=== PATIENT | male | born 1950 | race Caucasian/White ===

== ENCOUNTER 2016-07-13 17:46 | Inpatient (IN) | payer MEDICARE, BC ==
[~2016-07-13] VITALS: Ht 180.3 cm; Wt 73.7 kg
[2016-07-13 17:48] VITALS: BP 174/86; PULSE 73; RESP 18; TEMP 98; O2SAT 96
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
[2016-07-13] MEDS ORDERED: ATOR40TA16 PO (19:23)
[2016-07-13] MEDS ORDERED: SAW160TA (19:23)
[2016-07-13] MEDS ORDERED: DIVA500T PO (19:23)
[2016-07-13] MEDS ORDERED: METO100T PO (19:23)
[2016-07-13] MEDS ORDERED: MILK175C7 (19:23)
--- NOTE | 2016-07-13 19:24 | RADRPT ---
EXAM DATE/TIME: 07/13/2016 17:55 [facility] COMPARISON: No previous studies available for comparison. INDICATIONS : Pain from fall. MEDICAL HISTORY : None. SURGICAL HISTORY : None. ENCOUNTER: Initial ACUITY: 1 day PAIN SCORE: 5/10 LOCATION: Left ankle. FINDINGS: Three view exam was performed of the left ankle. The bony structures are in normal alignment. No ev idence of fracture, dislocation, or soft tissue swelling. The ankle mortise is intact. No radiopaqu e foreign bodies are seen. Bony mineralization is normal. CONCLUSION: Negative trauma study. Todd Cormier MD on July 13, 2016 at 19:21 Board Certified Radiologist. This report was verified electronically.
[2016-07-13 19:38] LABS: AUTOMATED NEUTROPHIL # 2.4 TH/MM3 (1.8-7.7); BASOPHIL % 0.6 % (0.0-2.0); EOSINOPHIL # 0.1 TH/MM3 (0-0.4); EOSINOPHIL % 2.1 % (0.0-4.0); HEMATOCRIT 40.4 % (39.0-51.0); HEMO FLAGS DIFF FINAL; LYMPH % 35.2 % (9.0-44.0); LYMPHOCYTE # 1.7 TH/MM3 (1.0-4.8); MEAN CELL VOLUME 90.1 FL (80.0-100.0); MEAN CORPUSCULAR HEMOGLOBIN 30.8 PG (27.0-34.0); MEAN CORPUSCULAR HGB CONC 34.2 % (32.0-36.0); MONO % 11.1 % (0.0-8.0); PLATELET COUNT 166 TH/MM3 (150-450); RED BLOOD COUNT 4.48 MIL/MM3 (4.50-5.90); RED CELL DISTRIBUTION WIDTH 13.5 % (11.6-17.2); WHITE BLOOD COUNT 4.7 TH/MM3 (4.0-11.0)
[2016-07-13 20:03] LABS: BICARBONATE 28.9 MEQ/L (21.0-32.0)
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
[2016-07-13] MEDS ORDERED: IOHEXOL 350 MG/ML 10 ML VIAL (for RAD DIAG) IV ONE (20:31)
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
[2016-07-13] MEDS ORDERED: SODIUM CHLOR 0.9% 1000 ML INJ 1,000 ML IV SCH (21:45)
[2016-07-13] MEDS ORDERED: HYDROmorphone HCL PF 1 MG/ML VIAL IV PRN (21:45)
[2016-07-13] MEDS ORDERED: SODIUM CHLORIDE 0.9% FLUSH 5 ML FLUSH IV FLUSH PRN (21:45)
[2016-07-13] MEDS ORDERED: MISCELLANEOUS NURSING INFORMATION XX SCH (21:45)
[2016-07-13] MEDS ORDERED: CHLORHEXIDINE GLUCONATE 2 % 1 PACK (2 CLOTHS) TOP PRN (21:45)
[2016-07-13] MEDS ORDERED: SODIUM CHLORIDE 0.9% FLUSH 5 ML FLUSH IV FLUSH SCH (21:45)
[2016-07-13] MEDS ORDERED: oxyCODONE/ACETAMINOPHEN 5 MG/325 MG TAB PO PRN (21:45)
[2016-07-13] MEDS ORDERED: ONDANSETRON HCL 4 MG/2 ML VIAL IV PRN (21:45)
[2016-07-13 21:47] VITALS: BP 151/68; PULSE 73; RESP 18; O2SAT 96
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
[2016-07-13] MEDS: levETIRAcetam 500 MG TAB PO SCH (22:12)
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
[2016-07-13 23:42] VITALS: BP 144/66; PULSE 85; RESP 18; O2SAT 94
[2016-07-14] VITALS (16 sets, daily range): BP systolic 141–169; BP diastolic 67–80; PULSE 74–98; RESP 17–26; TEMP 98.7–99.3; O2SAT 95–99
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
[2016-07-14] MEDS: CHLORHEXIDINE GLUCONATE 2 % 1 PACK (2 CLOTHS) TOP SCH (04:00)
[2016-07-14 04:05] LABS: AUTOMATED NEUTROPHIL # 4.5 TH/MM3 (1.8-7.7); BASOPHIL % 0.5 % (0.0-2.0); EOSINOPHIL % 0.4 % (0.0-4.0); HEMATOCRIT 39.7 % (39.0-51.0); HEMO FLAGS DIFF FINAL; LYMPH % 16.7 % (9.0-44.0); MEAN CELL VOLUME 91.9 FL (80.0-100.0); MEAN CORPUSCULAR HEMOGLOBIN 30.5 PG (27.0-34.0); MEAN CORPUSCULAR HGB CONC 33.2 % (32.0-36.0); MONO % 10.4 % (0.0-8.0); PLATELET COUNT 146 TH/MM3 (150-450); RED BLOOD COUNT 4.33 MIL/MM3 (4.50-5.90); RED CELL DISTRIBUTION WIDTH 13.3 % (11.6-17.2); WHITE BLOOD COUNT 6.2 TH/MM3 (4.0-11.0)
[2016-07-14 04:27] LABS: BICARBONATE 24.5 MEQ/L (21.0-32.0); POTASSIUM 3.5 MEQ/L (3.5-5.1)
[2016-07-14] MEDS ORDERED: EPINEPHrine HCL (1:10,000) 1 MG/10 ML SYRINGE ONE (05:29)
[2016-07-14] MEDS ORDERED: LIDOCAINE HCL 2% 100 MG/5 ML SYRINGE ONE (05:29)
[2016-07-14] MEDS ORDERED: ATROPINE SULFATE 1 MG/10 ML SYRINGE ONE (05:29)
--- NOTE | 2016-07-14 06:27 | RADRPT ---
EXAM DATE/TIME: 07/14/2016 05:45 [facility] COMPARISON: No previous studies available for comparison. INDICATIONS : Follow up trauma. RADIATION DOSE: 41.64 CTDIvol (mGy) MEDICAL HISTORY : Hypertension. SURGICAL HISTORY : Craniotomy ENCOUNTER: Subsequent ACUITY: 1 day PAIN SCALE: Non-responsive LOCATION: cranial TECHNIQUE: Multiple contiguous axial images were obtained of the head. Using automated exposure control and adj ustment of the mA and/or kV according to patient size, radiation dose was kept as low as reasonably a chievable to obtain optimal diagnostic quality images. FINDINGS: Compare July 13. There is a new 4.4 x 2.4 cm hemorrhage in the left frontal lobe. There is also slig ht increase in subarachnoid hemorrhage over the left convexity since prior examination. There is katrin te left craniotomy and some encephalomalacia on the left. Right hemisphere intact. No new bony abnorm alities. CONCLUSION: 1. There is a new focal 4.4 x 2.4 cm hematoma in the left frontal lobe and slight increase in subarac hnoid hemorrhage of the left convexity since July 13. Previous left craniotomy. Michele Manning MD on July 14, 2016 at 6:20 Board Certified Radiologist. This report was verified electronically.
[2016-07-14] MEDS ORDERED: SODIUM CHLOR 0.9% 1000 ML INJ 1,000 ML IV SCH (06:28)
[2016-07-14] MEDS ORDERED: RESP: ALBUTEROL 2.5 MG/IPRATROPIUM 0.5 MG NEB (PRN) INH (06:30)
[2016-07-14] MEDS ORDERED: ONDANSETRON HCL 4 MG/2 ML VIAL IV PRN (06:30)
[2016-07-14] MEDS ORDERED: SODIUM CHLORIDE 0.9% FLUSH 5 ML FLUSH IV FLUSH PRN (06:30)
[2016-07-14] MEDS ORDERED: ACETAMINOPHEN 325 MG TAB PO PRN (06:30)
[2016-07-14 07:50] LABS: APTT (PATIENT) 27.8 SEC (24.3-30.1); PROTHROMBIN TIME - PATIENT 11.2 SEC (9.8-11.6)
[2016-07-14] MEDS: FAMOTIDINE 20 MG TAB PO SCH ×2 (09:01→20:21)
[2016-07-14] MEDS: LACTULOSE SYRUP 20 GM/30 ML CUP PO SCH (09:02)
[2016-07-14] MEDS: levETIRAcetam 500 MG TAB PO SCH ×2 (09:02→20:22)
[2016-07-14] MEDS: DOCUSATE SODIUM 100 MG CAP PO SCH ×2 (09:02→20:21)
[2016-07-14] MEDS: SODIUM CHLORIDE 0.9% FLUSH 5 ML FLUSH IV FLUSH SCH ×2 (09:02→20:21)
[2016-07-14] MEDS: RESP: ALBUTEROL 2.5 MG/IPRATROPIUM 0.5 MG NEB (SCH) INH ×3 (10:26→22:21)
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
[2016-07-14] MEDS: MAGNESIUM HYDROXIDE SUSP 30 ML CUP PO SCH (20:21)
[2016-07-15] VITALS (11 sets, daily range): BP systolic 138–162; BP diastolic 57–73; PULSE 70–97; RESP 18–25; TEMP 98.7–100.8; O2SAT 96–100
[2016-07-15] MEDS: RESP: ALBUTEROL 2.5 MG/IPRATROPIUM 0.5 MG NEB (SCH) INH ×4 (03:08→21:03)
[2016-07-15 04:23] LABS: AUTOMATED NEUTROPHIL # 5.3 TH/MM3 (1.8-7.7); BASOPHIL # 0.1 TH/MM3 (0-0.2); BASOPHIL % 0.7 % (0.0-2.0); HEMATOCRIT 39.6 % (39.0-51.0); HEMO FLAGS DIFF FINAL; LYMPH % 12.6 % (9.0-44.0); LYMPHOCYTE # 0.9 TH/MM3 (1.0-4.8); MEAN CELL VOLUME 89.9 FL (80.0-100.0); MEAN CORPUSCULAR HEMOGLOBIN 30.6 PG (27.0-34.0); MONO % 13.2 % (0.0-8.0); NEUT % 73.5 % (16.0-70.0); PLATELET COUNT 145 TH/MM3 (150-450); RED CELL DISTRIBUTION WIDTH 13.5 % (11.6-17.2); WHITE BLOOD COUNT 7.3 TH/MM3 (4.0-11.0)
[2016-07-15] MEDS: CHLORHEXIDINE GLUCONATE 2 % 1 PACK (2 CLOTHS) TOP SCH (04:33)
[2016-07-15 05:23] LABS: ANION GAP 11 MEQ/L (5-15); AST (GOT) 18 U/L (15-37); BICARBONATE 27.6 MEQ/L (21.0-32.0); BLOOD UREA NITROGEN 10 MG/DL (7-18); CHLORIDE 102 MEQ/L (98-107); GLOMERULAR FILTRATION RATE 114 ML/MIN (>89); MAGNESIUM 2.2 MG/DL (1.5-2.5); POTASSIUM 3.3 MEQ/L (3.5-5.1); SODIUM (NA) 141 MEQ/L (136-145)
[2016-07-15] MEDS ORDERED: ATROPINE SULFATE 1 MG/10 ML SYRINGE ONE (05:36)
[2016-07-15] MEDS ORDERED: EPINEPHrine HCL (1:10,000) 1 MG/10 ML SYRINGE ONE (05:36)
[2016-07-15 05:38] LABS: ALKALINE PHOSPHATASE 39 U/L (45-117); ALT (GPT) 23 U/L (12-78); TOTAL BILIRUBIN ADULT 0.6 MG/DL (0.2-1.0)
--- NOTE | 2016-07-15 05:58 | RADRPT ---
EXAM DATE/TIME: 07/15/2016 05:38 [facility] COMPARISON: No previous studies available for comparison. INDICATIONS : Follow up bleed. RADIATION DOSE: 56.35 CTDIvol (mGy) MEDICAL HISTORY : Hypertension. SURGICAL HISTORY : Craniotomy. ENCOUNTER: Subsequent ACUITY: 2 days PAIN SCALE: 0/10 LOCATION: cranial TECHNIQUE: Multiple contiguous axial images were obtained of the head. Using automated exposure control and adj ustment of the mA and/or kV according to patient size, radiation dose was kept as low as reasonably a chievable to obtain optimal diagnostic quality images. FINDINGS: Compare July 14. There is a stable approximately 4 cm hematoma in the left frontal lobe. Stable suba rachnoid hemorrhage over the left convexity. Previous left craniotomy with encephalomalacia on the le ft. No new hemorrhage. Stable ventricular size. Small intraventricular hemorrhage on the left. CONCLUSION: 1. Stable exam since July 14. Approximate 4 cm hematoma remains in the left frontal lobe with left s ided subarachnoid hemorrhage and trace intraventricular hemorrhage. Michele Manning MD on July 15, 2016 at 5:55 Board Certified Radiologist. This report was verified electronically.
--- NOTE | 2016-07-15 06:10 | RADRPT ---
EXAM DATE/TIME: 07/15/2016 04:18 [facility] COMPARISON: No previous studies available for comparison. INDICATIONS : Shortness of breath. MEDICAL HISTORY : Hypertension. SURGICAL HISTORY : Cardiac stents. ENCOUNTER: Initial ACUITY: 1 day PAIN SCORE: Non-responsive. LOCATION: Bilateral chest FINDINGS: A single view of the chest demonstrates mild basilar density most characteristic of atelectasis. Hear t size within normal limits. Mildly tortuous aorta. No pneumothorax. CONCLUSION: 1. Minimal basilar atelectasis. Michele Manning MD on July 15, 2016 at 6:07 Board Certified Radiologist. This report was verified electronically.
[2016-07-15] MEDS: FAMOTIDINE 20 MG TAB PO SCH ×2 (08:44→20:36)
[2016-07-15] MEDS: DOCUSATE SODIUM 100 MG CAP PO SCH ×2 (08:44→20:36)
[2016-07-15] MEDS: SODIUM CHLORIDE 0.9% FLUSH 5 ML FLUSH IV FLUSH SCH ×2 (08:44→20:37)
[2016-07-15] MEDS: levETIRAcetam 500 MG TAB PO SCH ×2 (08:44→20:36)
[2016-07-15] MEDS: LACTULOSE SYRUP 20 GM/30 ML CUP PO SCH (09:00)
[2016-07-15] MEDS ORDERED: POTASSIUM PHOSPHATE MONOBASIC 500 MG TAB PO/TUBE PRN (12:30)
[2016-07-15] MEDS ORDERED: POTASSIUM CHLOR 20 MEQ PREMIX 100 ML IV PRN ×2 (12:30)
[2016-07-15] MEDS ORDERED: POTASSIUM PHOSPHATE INJ 30 MMOL in SODIUM CHLOR 0.9% 250 ML INJ 250 ML IV PRN (12:30)
[2016-07-15] MEDS ORDERED: POTASSIUM PHOSPHATE MONOBASIC 500 MG TAB PO PRN (12:30)
[2016-07-15] MEDS ORDERED: POTASSIUM CHLOR 40 MEQ PREMIX 100 ML IV PRN ×2 (12:30)
[2016-07-15] MEDS ORDERED: MAGNESIUM SULFATE INJ 2 GM in SODIUM CHLORIDE 0.9% INJ 96 ML IV PRN (12:30)
[2016-07-15] MEDS ORDERED: MAGNESIUM OXIDE 400 MG TAB PO PRN (12:30)
[2016-07-15] MEDS ORDERED: MAGNESIUM SULFATE INJ 4 GM in SODIUM CHLORIDE 0.9% INJ 92 ML IV PRN (12:30)
[2016-07-15] MEDS ORDERED: SODIUM PHOSPHATE INJ 30 MMOL in SODIUM CHLOR 0.9% 250 ML INJ 240 ML IV PRN (12:30)
[2016-07-15] MEDS ORDERED: hydrALAZINE HCL 20 MG/ML VIAL IV PUSH PRN (13:00)
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
[2016-07-15] MEDS: DIVALPROEX DR 500 MG TABEC PO SCH ×3 (14:57→20:36)
[2016-07-15] MEDS: ATORVASTATIN 40 MG TAB PO SCH (20:36)
[2016-07-15] MEDS: MAGNESIUM HYDROXIDE SUSP 30 ML CUP PO SCH (20:36)
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
[2016-07-16] VITALS (12 sets, daily range): BP systolic 123–142; BP diastolic 62–76; PULSE 73–101; RESP 13–20; TEMP 97.8–100.4; O2SAT 95–100
[2016-07-16] MEDS: CHLORHEXIDINE GLUCONATE 2 % 1 PACK (2 CLOTHS) TOP SCH (03:39)
[2016-07-16] MEDS: RESP: ALBUTEROL 2.5 MG/IPRATROPIUM 0.5 MG NEB (SCH) INH ×4 (03:54→20:08)
[2016-07-16 04:00] LABS: AUTOMATED NEUTROPHIL # 6.3 TH/MM3 (1.8-7.7); BASOPHIL % 0.4 % (0.0-2.0); EOSINOPHIL % 0.1 % (0.0-4.0); HEMATOCRIT 41.2 % (39.0-51.0); HEMO FLAGS DIFF FINAL; LYMPH % 11.6 % (9.0-44.0); MEAN CORPUSCULAR HEMOGLOBIN 30.7 PG (27.0-34.0); MEAN CORPUSCULAR HGB CONC 33.8 % (32.0-36.0); MONO % 12.9 % (0.0-8.0); PLATELET COUNT 153 TH/MM3 (150-450); RED BLOOD COUNT 4.53 MIL/MM3 (4.50-5.90); RED CELL DISTRIBUTION WIDTH 13.7 % (11.6-17.2); WHITE BLOOD COUNT 8.4 TH/MM3 (4.0-11.0)
[2016-07-16 04:31] LABS: ANION GAP 10 MEQ/L (5-15); AST (GOT) 22 U/L (15-37); BLOOD UREA NITROGEN 14 MG/DL (7-18); CHLORIDE 103 MEQ/L (98-107); GLOMERULAR FILTRATION RATE 98 ML/MIN (>89); MAGNESIUM 2.3 MG/DL (1.5-2.5); POTASSIUM 3.7 MEQ/L (3.5-5.1); SODIUM (NA) 140 MEQ/L (136-145)
[2016-07-16 04:35] LABS: ALKALINE PHOSPHATASE 42 U/L (45-117); ALT (GPT) 29 U/L (12-78); TOTAL BILIRUBIN ADULT 0.7 MG/DL (0.2-1.0)
[2016-07-16 06:02] LABS: C. DIFF EPI 027 PRESUMPTIVE NEGATIVE (NEGATIVE); C. DIFF TOXIN PCR NEGATIVE (NEGATIVE)
[2016-07-16] MEDS: levETIRAcetam 500 MG TAB PO SCH ×2 (07:42→21:37)
[2016-07-16] MEDS: DIVALPROEX DR 500 MG TABEC PO SCH ×4 (07:42→21:36)
[2016-07-16] MEDS: FAMOTIDINE 20 MG TAB PO SCH ×2 (07:42→21:37)
[2016-07-16] MEDS: DOCUSATE SODIUM 100 MG CAP PO SCH ×2 (07:42→21:00)
[2016-07-16] MEDS: SODIUM CHLORIDE 0.9% FLUSH 5 ML FLUSH IV FLUSH SCH ×2 (07:42→21:00)
[2016-07-16] MEDS: LACTULOSE SYRUP 20 GM/30 ML CUP PO SCH (07:43)
[2016-07-16] MEDS: METOPROLOL TARTRATE 50 MG TAB PO SCH ×2 (11:09→21:37)
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
[2016-07-16] MEDS: SODIUM CHLOR 0.9% 1000 ML INJ 1,000 ML IV SCH (16:14)
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
[2016-07-16] MEDS: MAGNESIUM HYDROXIDE SUSP 30 ML CUP PO SCH (21:00)
[2016-07-16] MEDS: ATORVASTATIN 40 MG TAB PO SCH (21:37)
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
[2016-07-17] VITALS (9 sets, daily range): BP systolic 121–162; BP diastolic 61–76; PULSE 80–101; RESP 16–18; TEMP 98.1–100.7; O2SAT 94–98
[2016-07-17] MEDS: RESP: ALBUTEROL 2.5 MG/IPRATROPIUM 0.5 MG NEB (SCH) INH ×4 (03:20→20:24)
[2016-07-17] MEDS: SODIUM CHLOR 0.9% 1000 ML INJ 1,000 ML IV SCH ×2 (04:45→17:50)
[2016-07-17 05:59] LABS: BASOPHIL % 0.5 % (0.0-2.0); HEMATOCRIT 39.2 % (39.0-51.0); HEMO FLAGS DIFF FINAL; LYMPH % 13.1 % (9.0-44.0); LYMPHOCYTE # 1.1 TH/MM3 (1.0-4.8); MEAN CELL VOLUME 89.3 FL (80.0-100.0); MEAN CORPUSCULAR HEMOGLOBIN 31.8 PG (27.0-34.0); MEAN CORPUSCULAR HGB CONC 35.6 % (32.0-36.0); NEUT % 73.4 % (16.0-70.0); PLATELET COUNT 177 TH/MM3 (150-450); RED BLOOD COUNT 4.39 MIL/MM3 (4.50-5.90); RED CELL DISTRIBUTION WIDTH 13.4 % (11.6-17.2); WHITE BLOOD COUNT 8.2 TH/MM3 (4.0-11.0)
[2016-07-17 06:25] LABS: ALKALINE PHOSPHATASE 42 U/L (45-117); ALT (GPT) 38 U/L (12-78); ANION GAP 9 MEQ/L (5-15); AST (GOT) 28 U/L (15-37); BICARBONATE 29.9 MEQ/L (21.0-32.0); BLOOD UREA NITROGEN 24 MG/DL (7-18); CHLORIDE 101 MEQ/L (98-107); GLOMERULAR FILTRATION RATE 90 ML/MIN (>89); MAGNESIUM 2.2 MG/DL (1.5-2.5); SODIUM (NA) 140 MEQ/L (136-145); TOTAL BILIRUBIN ADULT 0.7 MG/DL (0.2-1.0)
--- NOTE | 2016-07-17 08:06 | RADRPT ---
EXAM DATE/TIME: 07/17/2016 07:48 [facility] COMPARISON: CT BRAIN W/O CONTRAST, July 13, 2016, 18:41. CT BRAIN W/O CONTRAST, July 15, 2016, 5:38. INDICATIONS : Follow up bleed. RADIATION DOSE: 56.35 CTDIvol (mGy) MEDICAL HISTORY : Cardiovascular disease. Hypertension. SURGICAL HISTORY : Craniotomy. ENCOUNTER: Subsequent ACUITY: 4 - 6 days PAIN SCALE: 0/10 LOCATION: cranial TECHNIQUE: Multiple contiguous axial images were obtained of the head. Using automated exposure control and adj ustment of the mA and/or kV according to patient size, radiation dose was kept as low as reasonably a chievable to obtain optimal diagnostic quality images. FINDINGS: Left frontal and temporal parenchymal hematomas are stable. Mild presumed baseline encephalomalacia i n the left temporal region post prior craniotomy. Stable mild subarachnoid blood layering over the le ft convexities. Minimal [id number] subfalcine shift is unchanged. Ventricles are stable. Mild bifr ontal encephalomalacia is unchanged. No new acute findings are identified. CONCLUSION: Stable brain appearance. Robert Carlson MD on July 17, 2016 at 8:01 Board Certified Radiologist. This report was verified electronically.
[2016-07-17] MEDS: FAMOTIDINE 20 MG TAB PO SCH ×2 (08:11→21:07)
[2016-07-17] MEDS: DIVALPROEX DR 500 MG TABEC PO SCH ×4 (08:11→21:07)
[2016-07-17] MEDS: levETIRAcetam 500 MG TAB PO SCH ×2 (08:11→21:06)
[2016-07-17] MEDS: METOPROLOL TARTRATE 50 MG TAB PO SCH ×2 (08:11→21:07)
[2016-07-17] MEDS: LACTULOSE SYRUP 20 GM/30 ML CUP PO SCH ×2 (08:11→09:00)
[2016-07-17] MEDS: DOCUSATE SODIUM 100 MG CAP PO SCH ×2 (08:11→21:07)
[2016-07-17] MEDS: SODIUM CHLORIDE 0.9% FLUSH 5 ML FLUSH IV FLUSH SCH ×2 (08:11→21:07)
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
[2016-07-17] MEDS ORDERED: MILKSUS PO (14:47)
[2016-07-17] MEDS ORDERED: DOCU1CAP39 PO (14:47)
[2016-07-17 17:10] LABS: BLOOD, URINE NEG (NEG); COMMENT (UR) CULT NOT INDICATED; CULTURE IF INDICATED CULT NOT INDICATED; GLUCOSE,URINE NEG (NEG); KETONE, URINE 10 mg/dL (NEG); MUCUS URINE FEW /lpf (OCC); NITRITE,URINE NEG (NEG); PH, URINE 5.5 (5.0-8.5); SQUAMOUS EPITHELIAL CELL URINE <1 /hpf (0-5); URINE COLOR YELLOW (YELLW/STRAW)
[2016-07-17] MEDS: MAGNESIUM HYDROXIDE SUSP 30 ML CUP PO SCH (21:06)
[2016-07-17] MEDS: ATORVASTATIN 40 MG TAB PO SCH (21:07)
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
[2016-07-18] VITALS: BP 141/75; PULSE 89; RESP 18; TEMP 98.9; O2SAT 96
[2016-07-18 04:00] VITALS: BP 144/72; PULSE 85; RESP 18; TEMP 99.3; O2SAT 98
[2016-07-18] MEDS: RESP: ALBUTEROL 2.5 MG/IPRATROPIUM 0.5 MG NEB (SCH) INH ×2 (05:19→09:02)
[2016-07-18 05:21] VITALS: O2SAT 96
[2016-07-18 08:00] VITALS: BP 142/73; PULSE 89; RESP 18; TEMP 99.4; O2SAT 98
[2016-07-18] MEDS: DOCUSATE SODIUM 100 MG CAP PO SCH (08:12)
[2016-07-18] MEDS: LACTULOSE SYRUP 20 GM/30 ML CUP PO SCH (08:12)
[2016-07-18] MEDS: METOPROLOL TARTRATE 50 MG TAB PO SCH (08:12)
[2016-07-18] MEDS: DIVALPROEX DR 500 MG TABEC PO SCH ×2 (08:12→12:20)
[2016-07-18] MEDS: levETIRAcetam 500 MG TAB PO SCH (08:12)
[2016-07-18] MEDS: FAMOTIDINE 20 MG TAB PO SCH (08:12)
[2016-07-18] MEDS: SODIUM CHLORIDE 0.9% FLUSH 5 ML FLUSH IV FLUSH SCH (08:13)
[2016-07-18 09:01] VITALS: O2SAT 93
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
[2016-07-18] MEDS ORDERED: WALKER WHEELS/F1 MIS (11:53)
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
== END 2016-07-18 14:31 | disposition home health service (06) | DRG 87 ==
LOC: NEPC 17:46 → NEDA 21:18 → N03A 07-14 00:18 → N05B 07-16 15:53
PROVIDERS: ADMIT Surgery Trauma Surgery; ATTEND Surgery Trauma Surgery
DX: S06.6X0A Traumatic subarachnoid hemorrhage without loss of consciousness, initial encounter (principal); I10 Essential (primary) hypertension; S02.19XA Other fracture of base of skull, initial encounter for closed fracture; S02.0XXA Fracture of vault of skull, initial encounter for closed fracture; V22.4XXA Motorcycle driver injured in collision with two- or three-wheeled motor vehicle in traffic accident, initial encounter; Y92.410 Unspecified street and highway as the place of occurrence of the external cause; R40.2412 Glasgow coma scale score 13-15, at arrival to emergency department; Z87.820 Personal history of traumatic brain injury; I25.10 Atherosclerotic heart disease of native coronary artery without angina pectoris; Z95.5 Presence of coronary angioplasty implant and graft; K80.20 Calculus of gallbladder without cholecystitis without obstruction
CPT/HCPCS: 70450; 71010; 71260; 72125; 73610; 74177; 80048; 80053; 81001; 83735; 84100; 85025; 85610; 85730; 87493; 87641; 94150; 94640; 94664; J0171; J0461; J3480; J7030; L0150; Q9967